=== PATIENT | male | born 2000 | race Caucasian/White ===

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

== ENCOUNTER 2018-04-30 13:39 | Emergency (ER) | payer BC ==
[2018-04-30] MEDS ORDERED: METHYLPREDNISOLONE PF 125MG/VIAL IVP ONE (14:11)
[2018-04-30] MEDS ORDERED: DIPHENHYDRAMINE HCL 50 MG/ML VIAL IVP ONE (14:11)
[2018-04-30 14:49] LABS: BASO % 0.2 % (0-6); EOS % 0.6 % (0-6); GRAN % 67.1 % (47-80); HEMATOCRIT 44.5 % (42.0-52.0); HEMOGLOBIN 15.5 gm/dl (14.0-18.0); LYMPH % 23.7 % (16-45); MEAN CELL VOLUME 90.4 fl (81-97); MEAN CORPUSCULAR HEMOGLOBIN 31.5 pg (27-33); MEAN CORPUSCULAR HGB CONC 34.8 g/dl (32-36); MEAN PLATELET VOLUME 10.3 fl (7.4-10.4); MONO % 8.4 % (0-9); PLATELET COUNT 245 K/uL (130-400); RED BLOOD COUNT 4.92 M/uL (4.40-5.70); RED CELL DISTRIBUTION WIDTH 12.4 % (11.5-14.5); WHITE BLOOD COUNT W/O DIFF 9.4 K/uL (4.2-12.2)
[2018-04-30] MEDS ORDERED: ONDANSETRON HCL IV 4 MG/2 ML VIAL IVP ONE (15:01)
[2018-04-30 15:02] LABS: BLOOD UREA NITROGEN 13 mg/dL (6-20); CREATININE 0.8 mg/dL (0.7-1.2); EST GLOMERULAR FILTRATION RATE > 60 mL/min
[2018-04-30 15:05] LABS: GLUCOSE,RANDOM 86 mg/dL (74-109)
[2018-04-30 15:08] LABS: CREATINE PHOSPHOKINASE 158 U/L (39-308)
[2018-04-30 15:11] LABS: CKMB 1.7 ng/mL (<6.73)
[2018-04-30 15:29] LABS: ERYTHROCYTE SEDIMENTATION RATE 3 mm/hr (0-15)
[2018-04-30] MEDS ORDERED: KETOROLAC 30 MG/ML VIAL IVP ONE (16:42)
--- NOTE | 2018-04-30 16:46 | Emergency Department Record ---
History of Present Illness - General Chief Complaint: Chest Pain Stated Complaint: CHEST PAIN,SHORTNESS BREATH,RASH Time Seen by Provider: 04/30/18 14:06 Source: Patient Mode of Arrival: Ambulatory Limitations: No limitations - History of Present Illness Initial Comments: pt has been having sharp cp and feeling sob. he also has a rash that itches on his back MD Complaint: Chest pain Onset/Timin -: Days(s) Pain Location: Left chest Pain Radiation: LUE Severity: Moderate Quality: Aching, Dull Consistency: Intermittent Worsens With: Inspiration Anginal Symptoms: Dyspnea Other Symptoms: Cough Treatments Prior to Arrival: None - Related Data Home Medications Medication Instructions Recorded Confirmed Last Taken No Home Med [NO HOME MEDS] 04/30/18 04/30/18 Unknown Allergies Allergy/AdvReac Type Severity Reaction Status Date / Time No Known Drug Allergies Allergy Verified 04/30/18 13:48 Travel Screening - Travel/Exposure Within Last 30 Days Have you traveled within the last 30 days?: No - Travel/Exposure Within Last Year Have you traveled outside the [place] in the last year?: No - Additonal Travel Details Have you been exposed to anyone with a communicable illness?: No - Travel Symptoms Symptom Screening: None Review of Systems Reviewed: No additional complaints except as noted below Constitutional: Reports: As per HPI. Denies: Chills, Fever, Malaise, Night sweats, Weakness, Weight change Eyes: Reports: As per HPI. Denies: Eye discharge, Eye pain, Photophobia, Vision change ENT: Reports: As per HPI. Denies: Congestion, Dental pain, Ear pain, Epistaxis , Hearing loss, Throat pain Respiratory: Reports: As per HPI. Denies: Cough, Dyspnea, Hemoptysis, Stridor, Wheezes Cardiovascular: Reports: As per HPI, Chest pain. Denies: Arrhythmia, Dyspnea on exertion, Edema, Murmurs, Orthopnea, Palpitations, Paroxysmal nocturnal dyspnea, Rheumatic Fever, Syncope Endocrine: Reports: As per HPI. Denies: Fatigue, Heat or cold intolerance, Polydipsia, Polyuria Gastrointestinal: Reports: As per HPI. Denies: Abdominal pain, Constipation, Diarrhea, Hematemesis, Hematochezia, Melena, Nausea, Vomiting Genitourinary: Reports: As per HPI. Denies: Dysuria, Frequency, Hematuria, Incontinence, Retention, Testicular pain, Testicular mass, Urgency Musculoskeletal: Reports: As per HPI. Denies: Arthralgia, Back pain, Gout, Joint swelling, Myalgia, Neck pain Skin: Reports: As per HPI. Denies: Bruising, Change in color, Change in hair/ nails, Lesions, Pruritus, Rash Neurological: Reports: As per HPI. Denies: Abnormal gait, Confusion, Headache, Numbness, Paresthesias, Seizure, Tingling, Tremors, Vertigo, Weakness Psychiatric: Reports: As per HPI. Denies: Anxiety, Auditory hallucinations, Depression, Homicidal thoughts, Suicidal thoughts, Visual hallucinations Hematological/Lymphatic: Reports: As per HPI. Denies: Anemia, Blood Clots, Easy bleeding, Easy bruising, Swollen glands Past Medical History - SOCIAL HISTORY Smoking Status: Light tobacco smoker (<10/day) Alcohol Use: None Drug Use: None - RESPIRATORY Hx Respiratory Disorders: Yes Hx Asthma: Yes (exertional) - CARDIOVASCULAR Hx Cardio Disorders: No - NEURO Hx Neuro Disorders: No - GI Hx GI Disorders: Yes Comment:: blood in stool - Hx Genitourinary Disorders: No - ENDOCRINE Hx Endocrine Disorders: No - MUSCULOSKELETAL Hx Musculoskeletal Disorders: No - PSYCH Hx Psych Problems: No - HEMATOLOGY/ONCOLOGY Hx Hematology/Oncology Disorders: No Family Medical History Any Significant Family History?: Yes Physical Exam - General General Appearance: Alert, Oriented x3, Cooperative, Mild distress - Head Head exam: Normal inspection - Eye Eye exam: Normal appearance, PERRL, EOMI Pupils: Normal accommodation - ENT ENT exam: Normal exam, Mucous membranes moist, Normal external ear exam, Normal orophraynx Ear exam: Normal external inspection. negative: External canal tenderness Nasal Exam: Normal inspection. negative: Discharge, Sinus tenderness Mouth exam: Normal external inspection, Tongue normal Teeth exam: Normal inspection. negative: Dental caries Throat exam: Normal inspection. negative: Tonsillar erythema, Tonsillar exudate - Neck Neck exam: Normal inspection, Full ROM. negative: Tenderness - Respiratory Respiratory exam: Normal lung sounds bilaterally. negative: Respiratory distress - Cardiovascular Cardiovascular Exam: Regular rate, Normal rhythm, Normal heart sounds - GI/Abdominal GI/Abdominal exam: Soft, Normal bowel sounds. negative: Tenderness - Rectal Rectal exam: Deferred - exam: Deferred - Extremities Extremities exam: Normal inspection, Full ROM, Normal capillary refill. negative: Tenderness - Back Back exam: Reports: Normal inspection, Full ROM. Denies: Muscle spasm, Rash noted, Tenderness - Neurological Neurological exam: Alert, CN II-XII intact, Normal gait, Oriented X3 - Psychiatric Psychiatric exam: Normal affect, Normal mood - Skin Skin exam: Dry, Intact, Normal color, Urticaria, Warm Course Vital Signs 04/30/18 04/30/18 13:44 15:08 Temperature 98.7 F Pulse Rate 59 L Pulse Rate [ 61 Pulse Ox Probe] Respiratory 16 14 Rate Blood Pressure 132/86 Blood Pressure 118/80 [Left Arm] Pulse Ox 98 Medical Decision Making - Lab Data Result diagrams: 04/30/18 14:38 04/30/18 14:38 Lab Results 04/30/18 04/30/18 04/30/18 Range/Units 14:38 14:38 14:38 WBC 9.4 (4.2-12.2) K/uL RBC 4.92 (4.40-5.70) M/uL Hgb 15.5 (14.0-18.0) gm/dl Hct 44.5 (42.0-52.0) % MCV 90.4 (81-97) fl MCH 31.5 (27-33) pg MCHC 34.8 (32-36) g/dl RDW 12.4 (11.5-14.5) % Plt Count 245 (130-400) K/uL MPV 10.3 (7.4-10.4) fl Gran % 67.1 (47-80) % Lymphocytes % 23.7 (16-45) % Monocytes % 8.4 (0-9) % Eosinophils % 0.6 (0-6) % Basophils % 0.2 (0-6) % ESR 3 (0-15) mm/hr D-Dimer 1.14 H (0-0.59) mg/L FEU Sodium (136-145) mmol/L Potassium (3.4-4.5) mmol/L Chloride (98-107) mmol/L Carbon Dioxide (22-29) mmol/L Anion Gap (7-16) BUN (6-20) mg/dL Creatinine (0.7-1.2) mg/dL Estimated GFR mL/min Random Glucose (74-109) mg/dL Calcium (8.6-10.0) mg/dL Creatine Kinase 158 (39-308) U/L CK-MB (CK-2) 1.7 (<6.73) ng/mL Troponin T < 0.010 (0-0.010) ng/mL 04/30/18 Range/Units 14:38 WBC (4.2-12.2) K/uL RBC (4.40-5.70) M/uL Hgb (14.0-18.0) gm/dl Hct (42.0-52.0) % MCV (81-97) fl MCH (27-33) pg MCHC (32-36) g/dl RDW (11.5-14.5) % Plt Count (130-400) K/uL MPV (7.4-10.4) fl Gran % (47-80) % Lymphocytes % (16-45) % Monocytes % (0-9) % Eosinophils % (0-6) % Basophils % (0-6) % ESR (0-15) mm/hr D-Dimer (0-0.59) mg/L FEU Sodium 139 (136-145) mmol/L Potassium 3.7 (3.4-4.5) mmol/L Chloride 99 (98-107) mmol/L Carbon Dioxide 26.0 (22-29) mmol/L Anion Gap 14.0 (7-16) BUN 13 (6-20) mg/dL Creatinine 0.8 (0.7-1.2) mg/dL Estimated GFR > 60 mL/min Random Glucose 86 (74-109) mg/dL Calcium 9.2 (8.6-10.0) mg/dL Creatine Kinase (39-308) U/L CK-MB (CK-2) (<6.73) ng/mL Troponin T (0-0.010) ng/mL Disposition Disposition: Discharge Clinical Impression: SOB (shortness of breath), Urticaria Chest pain Qualifiers: Chest pain type: unspecified Qualified Code(s): R07.9 - Chest pain, unspecified Disposition: Home, Self-Care Condition: (1) Good Instructions: Chest Pain (ED), Urticaria (ED), Shortness of Breath (ED) Additional Instructions: follow up with family doctor. return sooner if worse. benadryl every 6 hours as needed. have echo of heart Quality - Quality Measures Quality Measures: N/A - Blood Pressure Screening Does Patient Have Any of the Following: No Blood Pressure Classification: Pre-Hypertensive BP Reading Systolic Measurement: 132 Diastolic Measurement: 86 Screening for High Blood Pressure: < Pre-Hypertensive BP, F/U Documented > [ G8950] Pre-Hypertensive Follow-up Interventions: Follow-up with rescreen every year.
[2018-04-30] MEDS ORDERED: KETOROLAC 30 MG/ML VIAL IM ONE (16:49)
--- NOTE | 2018-05-01 14:32 | CT ANGIOGRAM REPORT ---
EXAM: CT ANGIOGRAM OF THE CHEST WITH POST PROCESSING HISTORY: CHEST PAIN AND SHORTNESS BREATH. ELEVATED D-DIMER. TECHNIQUE: Standard CT angiography of the chest was performed with post processing following the bolus administration of 100 ml of Omnipaque 350. Additional coronal and sagittal maximum intensity projection reformatted images were performed on an independent workstation under concurrent supervision. Comparison: None. FINDINGS: The heart and great vessels are normal. The pulmonary arterial tree is unremarkable. There is no pulmonary embolus. There is no aortic dissection. There is no mediastinal or hilar lymphadenopathy. The lungs are clear. There is no pneumothorax or effusion. The bones are intact. The upper abdomen is unremarkable. IMPRESSION: NEGATIVE CTA OF THE CHEST. JOB [facility]BER: [id number] [facility]
== END 2018-04-30 17:24 | disposition home or self-care (01) ==
LOC: ER 13:39
DX: R07.89 Other chest pain (principal); R06.02 Shortness of breath; R79.89 Other specified abnormal findings of blood chemistry; R05 Cough; L50.9 Urticaria, unspecified; R22.0 Localized swelling, mass and lump, head; F17.210 Nicotine dependence, cigarettes, uncomplicated
CPT/HCPCS: 99282; 99284 ×2; 96374; 96372; 96375; 99283; 82550; 85025; 85651; 82553; 80048; 84484; 85379; 71275; 93005; 93010; Q9967; J1885; J2405; 86308; J1200; J2930

== ENCOUNTER 2018-04-30 20:08 | Emergency (ER) | payer BC ==
--- NOTE | 2018-04-30 20:23 | Emergency Department Record ---
History of Present Illness - General Chief complaint: Facial Swelling Stated complaint: FACIAL SWELLING Time Seen by Provider: 04/30/18 20:20 Source: Patient Mode of Arrival: Ambulatory Limitations: No limitations - History of Present Illness Initial Comments: The patient is here due to developing mild lip swelling about 2 hours ago. He was here in the ER earlier due to a rash and chest pain and had a neg workup including a neg chest CT with contrast and Toradol in the IV. He also received Benadryl and Solumedrol IV for the rash. After getting home the lips started swelling 2 hours ago. There has been no difficulty swallowing, MARIMAR, SOB, voice changes or any skin rash. The patient does not think he has ever had a CT with IV contrast before and any Toradol in the past. MD Complaint: Facial swelling Onset/Timin -: Hour(s) Symptoms: Lip swelling - Related Data Previous Rx's Medication Instructions Recorded Prednisone [Prednisone 20Mg] 40 mg PO DAILY #8 tab 04/30/18 Allergies Allergy/AdvReac Type Severity Reaction Status Date / Time No Known Drug Allergies Allergy Verified 04/30/18 13:48 Travel Screening - Travel/Exposure Within Last 30 Days Have you traveled within the last 30 days?: No Review of Systems Constitutional: Denies: Chills, Fever Eyes: Denies: Eye discharge ENT: Denies: Congestion Respiratory: Denies: Cough, Dyspnea, Hemoptysis, Stridor, Wheezes Cardiovascular: Denies: Arrhythmia Endocrine: Denies: Fatigue Gastrointestinal: Denies: Diarrhea, Nausea Genitourinary: Denies: Dysuria Musculoskeletal: Denies: Arthralgia, Back pain Past Medical History - SOCIAL HISTORY Smoking Status: Light tobacco smoker (<10/day) Alcohol Use: None Drug Use: None - RESPIRATORY Hx Respiratory Disorders: Yes Hx Asthma: Yes (exertional) - CARDIOVASCULAR Hx Cardio Disorders: No - NEURO Hx Neuro Disorders: No - GI Hx GI Disorders: Yes Comment:: blood in stool - Hx Genitourinary Disorders: No - ENDOCRINE Hx Endocrine Disorders: No - MUSCULOSKELETAL Hx Musculoskeletal Disorders: No - PSYCH Hx Psych Problems: No - HEMATOLOGY/ONCOLOGY Hx Hematology/Oncology Disorders: No Family Medical History Any Significant Family History?: No Physical Exam - General General Appearance: Alert, Oriented x3, Cooperative, No acute distress - Head Head exam: Atraumatic, Normocephalic, Normal inspection - Eye Eye exam: Normal appearance, PERRL, EOMI. negative: Conjunctival injection - ENT ENT exam: negative: Normal exam Mouth exam: Tongue normal. negative: Normal external inspection (There is very mild edema to the upper and lower lips. There is no tongue or pharyngeal swelling.), Drooling, Muffled voice, Tongue elevation, Trismus Throat exam: Normal inspection. negative: Tonsillar erythema, Tonsillar exudate - Neck Neck exam: Normal inspection, Full ROM. negative: Tenderness - Respiratory Respiratory exam: Normal lung sounds bilaterally. negative: Respiratory distress - Cardiovascular Cardiovascular Exam: Regular rate, Normal rhythm, Normal heart sounds - GI/Abdominal GI/Abdominal exam: Soft, Normal bowel sounds. negative: Tenderness - Extremities Extremities exam: Normal inspection, Full ROM, Normal capillary refill. negative: Tenderness - Neurological Neurological exam: Alert - Skin Skin exam: negative: Rash, Urticaria Course Vital Signs 04/30/18 20:12 Temperature 98.8 F Pulse Rate [ 75 Pulse Ox Probe] Respiratory 20 Rate Blood Pressure 123/77 [Left Arm] Pulse Ox 96 - Reevaluation(s) Reevaluation #1: The patient is doing better at this time. His lower lip is now back to normal and his upper lip is about 50% improved. There is no tongue swelling or any voice changes, MARIMAR, difficulty swallowing or SOB. I did explain to the patient the need to continue the Benadryl and Prednisone and to see an piping supervisor in 3-4 weeks for further allergy testing. I explained that the cause could be environmental, or due to the Toradol or IV dye and hopefully the piping supervisor will be able to test for those. 04/30/18 21:32 Disposition Disposition: Discharge Clinical Impression: Lip swelling Disposition: Home, Self-Care Condition: (2) Stable Instructions: Allergies (ED) Additional Instructions: Please take 50 mg of Benadryl 4 times a day for the next 4 days. Continue the Prednisone tomorrow as directed. Please see your family doctor for recheck later this week and be referred to an [employer] for testing. Return to the ER for any worsening symptoms, return of the lip swelling, pain, trouble breathing or rashes. Prescriptions: Prednisone [Prednisone 20Mg] 40 mg PO DAILY #8 tab Forms: Patient Portal Access Time of Disposition: 21:32 Quality - Quality Measures Quality Measures: N/A - Blood Pressure Screening View Details: Yes Does Patient Have Any of the Following: No Blood Pressure Classification: Pre-Hypertensive BP Reading Systolic Measurement: 123 Diastolic Measurement: 77 Screening for High Blood Pressure: < Pre-Hypertensive BP, F/U Documented > [ G8950] Pre-Hypertensive Follow-up Interventions: Referral to alternative/primary care provider.
[2018-04-30] MEDS ORDERED: DIPHENHYDRAMINE HCL 50 MG/ML VIAL IM ONE (20:29)
== END 2018-04-30 21:36 | disposition home or self-care (01) ==
LOC: ER 20:08
DX: R22.0 Localized swelling, mass and lump, head (principal); F17.210 Nicotine dependence, cigarettes, uncomplicated
CPT/HCPCS: J1200